=== PATIENT | female | born 1940 | race Caucasian/White ===

== ENCOUNTER 2016-11-06 20:48 | Emergency (ER) | payer MEDICARE, OTHER ==
[2014-10-08 11:13] VITALS: BMI 28.9
[~2016-11-06 20:48] MED LIST: ADVAIR 250/501 DISK INH; ASPIRIN325 MG PO; AVAPRO150 MG PO; CARDIZEM CD180 MG PO; CILOXAN5 ML EACH EYE; GLUCOPHAGE500 MG PO; LACRI-LUBE; LEVAQUIN500 MG PO; PREDNISONE20 MG PO; VALTREX1000 MG PO; ZYLOPRIM300 MG PO
== END 2016-11-06 21:20 | disposition left against medical advice (07) ==
LOC: D.ER 20:48
DX: R10.2 Pelvic and perineal pain (principal)

== ENCOUNTER 2016-11-22 09:13 | Emergency (ER) | payer MEDICARE, OTHER ==
[2014-10-08 11:13] VITALS: BMI 28.9
== END 2016-11-22 11:50 | disposition home or self-care (01) ==
LOC: D.ER 09:13
DX: S01.81XA Laceration without foreign body of other part of head, initial encounter (principal); W19.XXXA Unspecified fall, initial encounter; S16.1XXA Strain of muscle, fascia and tendon at neck level, initial encounter; S80.01XA Contusion of right knee, initial encounter

== ENCOUNTER 2016-12-03 11:51 | Emergency (ER) | payer MEDICARE, OTHER ==
[2014-10-08 11:13] VITALS: BMI 28.9
[2016-12-03 13:26] LABS: ALBUMIN 3.5 g/dL (3.4-5.0); ALKALINE PHOSPHATASE 82 U/L (46-116); ALT (SGPT) 22 U/L (10-68); BILIRUBIN - TOTAL 0.34 mg/dL (0.2-1.3); CALC OSMOLALITY 285 mosm/kg (275-300); CALCIUM 8.7 mg/dL (8.5-10.1); CARBON DIOXIDE 28.5 mmol/L (21.0-32.0); CHLORIDE - SERUM 104 mmol/L (98-107); CREATININE - SERUM 0.6 mg/dL (0.6-1.3); POTASSIUM - SERUM 3.6 mmol/L (3.5-5.1); SODIUM 142 mmol/L (136-145); UREA NITROGEN 18 mg/dL (7-18); eGFR NON AFRICAN AMERICAN > 90 mL/min (90-120)
[2016-12-03 13:27] LABS: BASOPHILS 0.3 % (0-2); EOSINOPHILS 3.8 % (0-7); HEMATOCRIT 45.9 % (36.0-48.0); HEMOGLOBIN 15.3 g/dL (12-16); IMMATURE GRANULOCYTES 0.2 % (0-5); LYMPHOCYTES 19.3 % (15-50); MCH 30.7 pg (26.0-34.0); MCHC 33.3 g/dL (31.0-37.0); MEAN PLATELET VOLUME 9.8 fL (7.4-10.4); MONOCYTES 7.1 % (2-11); NEUTROPHILS 69.3 % (40-80); PLATELET COUNT 299 10x3/uL (130-400); RBC 4.99 10x6/uL (4.00-5.40); RDW 13.7 % (11.5-14.5); WBC 12.3 10x3/uL (4.8-10.8)
[2016-12-03 13:33] LABS: GLUCOSE 123 mg/dL (74-106)
== END 2016-12-03 14:11 | disposition home or self-care (01) ==
LOC: D.ER 11:51
PROVIDERS: Nurse Practitioner Acute Care
DX: R19.7 Diarrhea, unspecified (principal); J45.909 Unspecified asthma, uncomplicated; E83.42 Hypomagnesemia; F17.200 Nicotine dependence, unspecified, uncomplicated

== ENCOUNTER 2016-12-31 20:23 | Emergency (ER) | payer MEDICARE, OTHER ==
[2014-10-08 11:13] VITALS: BMI 28.9
== END 2016-12-31 21:46 | disposition home or self-care (01) ==
LOC: D.ER 20:23
DX: K64.4 Residual hemorrhoidal skin tags (principal); F17.200 Nicotine dependence, unspecified, uncomplicated

== ENCOUNTER 2017-01-13 18:36 | Emergency (ER) | payer MEDICARE, OTHER ==
[2014-10-08 11:13] VITALS: BMI 28.9
[2017-01-13 21:34] LABS: BASOPHILS 0.4 % (0-2); EOSINOPHILS 4.4 % (0-7); HEMATOCRIT 44.5 % (36.0-48.0); HEMOGLOBIN 14.7 g/dL (12-16); IMMATURE GRANULOCYTES 0.3 % (0-5); LYMPHOCYTES 26.3 % (15-50); MCH 30.7 pg (26.0-34.0); MCV 92.9 fL (80.0-100.0); MEAN PLATELET VOLUME 9.5 fL (7.4-10.4); MONOCYTES 7.2 % (2-11); NEUTROPHILS 61.4 % (40-80); PLATELET COUNT 285 10x3/uL (130-400); RBC 4.79 10x6/uL (4.00-5.40); RDW 13.7 % (11.5-14.5); WBC 11.9 10x3/uL (4.8-10.8)
[2017-01-13 21:35] LABS: INR 0.98 (0.85-1.17); PROTIME 12.8 SECONDS (11.6-15.0)
[2017-01-13 21:51] LABS: ALBUMIN 3.3 g/dL (3.4-5.0); ANION GAP 13.4 mmol/L (8-16); BILIRUBIN - TOTAL 0.25 mg/dL (0.2-1.3); CALCIUM 8.8 mg/dL (8.5-10.1); CARBON DIOXIDE 28.2 mmol/L (21.0-32.0); CREATININE - SERUM 0.8 mg/dL (0.6-1.3); MAGNESIUM - SERUM 1.9 mg/dL (1.8-2.4); POTASSIUM - SERUM 3.6 mmol/L (3.5-5.1); PROTEIN - SERUM 6.7 g/dL (6.4-8.2)
== END 2017-01-13 22:02 | disposition home or self-care (01) ==
LOC: D.ER 18:36
PROVIDERS: Nurse Practitioner Family
DX: K64.9 Unspecified hemorrhoids (principal); K62.89 Other specified diseases of anus and rectum; K59.00 Constipation, unspecified; K62.5 Hemorrhage of anus and rectum; J45.909 Unspecified asthma, uncomplicated

== ENCOUNTER 2017-01-28 10:25 | Emergency (ER) | payer MEDICARE, OTHER ==
[2014-10-08 11:13] VITALS: BMI 28.9
== END 2017-01-28 11:50 | disposition home or self-care (01) ==
LOC: D.ER 10:25
DX: Y04.2XXA Assault by strike against or bumped into by another person, initial encounter (principal); Y93.89 Activity, other specified; Y92.019 Unspecified place in single-family (private) house as the place of occurrence of the external cause; F41.9 Anxiety disorder, unspecified; J45.909 Unspecified asthma, uncomplicated; E11.9 Type 2 diabetes mellitus without complications; Z79.4 Long term (current) use of insulin

== ENCOUNTER 2017-03-29 15:28 | Inpatient (IN) | payer MEDICARE, OTHER ==
[~2017-03-29] VITALS: Ht 167.6 cm; Wt 97.7 kg
[2017-03-29 16:28] LABS: BASOPHILS 0.4 % (0-2); EOSINOPHILS 3.5 % (0-7); HEMATOCRIT 45.1 % (36.0-48.0); HEMOGLOBIN 14.9 g/dL (12-16); IMMATURE GRANULOCYTES 0.3 % (0-5); LYMPHOCYTES 22.9 % (15-50); MEAN PLATELET VOLUME 9.6 fL (7.4-10.4); MONOCYTES 6.4 % (2-11); NEUTROPHILS 66.5 % (40-80); PLATELET COUNT 275 10x3/uL (130-400); RDW 13.5 % (11.5-14.5); WBC 11.8 10x3/uL (4.8-10.8)
[2017-03-29 16:42] LABS: APPEARANCE CLEAR (CLEAR); BILIRUBIN NEGATIVE (NEGATIVE); COLOR YELLOW (YELLOW); GLUCOSE NEGATIVE (NEGATIVE); KETONE NEGATIVE (NEGATIVE); NITRITE NEGATIVE (NEGATIVE); PROTEIN NEGATIVE (NEGATIVE); SPECIFIC GRAVITY 1.015 (1.005-1.020); UROBILINOGEN NORMAL (NORMAL)
[2017-03-29 17:05] LABS: UDS - AMPHET NEGATIVE QUAL (NEGATIVE); UDS - BARB NEGATIVE QUAL (NEGATIVE); UDS - BENZO NEGATIVE QUAL (NEGATIVE); UDS - COCAINE NEGATIVE QUAL (NEGATIVE); UDS - OPIATE NEGATIVE QUAL (NEGATIVE); UDS - PCP NEGATIVE QUAL (NEGATIVE); UDS - THC NEGATIVE QUAL (NEGATIVE)
[2017-03-29 17:07] LABS: ALBUMIN 3.2 g/dL (3.4-5.0); ANION GAP 12.6 mmol/L (8-16); BILIRUBIN - TOTAL 0.19 mg/dL (0.2-1.3); CALCIUM 9.1 mg/dL (8.5-10.1); CARBON DIOXIDE 29.2 mmol/L (21.0-32.0); CREATININE - SERUM 0.8 mg/dL (0.6-1.3); PROTEIN - SERUM 6.6 g/dL (6.4-8.2)
[2017-03-29 17:22] LABS: POTASSIUM - SERUM 3.8 mmol/L (3.5-5.1)
[2017-03-29 22:40] VITALS: BP 154/84; BMI 34.7
--- NOTE | 2017-03-30 05:16 | NUR ---
NEW ADMIT TO DOCTOR LAINEZ FROM [facility] EMERGENCY DEPARTMENT FOR ALTERED MENTAL STATUS. PATIENT LIVES WITH AND BECAME COMBATIVE WITH THIS AM. POLICE AND APS CALLED. APS ATTEMPTED PLACEMENT BUT WAS UNSUCCESSFUL. TAKEN TO [facility] ED FOR EVAL. PATIENT TRANSPORTED TO [facility] VIA WHEELCHAIR WITH ED STAFF. CONSENT TO TREAT RECEIVED FROM . CALM AND COOPERATIVE UPON ARRIVAL TO [facility]. ADMIT ASSESSMENT AND HISTORY COMPLETED. STATES SHE IS A DNR. PATIENT IS CALM AND COOPERATIVE AT THIS TIME. ORIENTED TO UNIT. FALL SAFETY EDUCATION GIVEN. CONTINUE TO MONITOR.
[2017-03-30 06:01] LABS: HEMOGLOBIN A1C 7.3 % (4.8-6.0)
[2017-03-30 06:13] LABS: CHOL - HDL RATIO 4.6 ratio (2.3-4.1); LDL-HDL RATIO 2.9 ratio (1.5-3.5); THYROID STIMULATING HORMONE 0.96 uIU/mL (0.36-3.74)
[2017-03-30 09:37] VITALS: BP 188/92
--- NOTE | 2017-03-30 10:00 | NUR ---
ORIENTED TO SELF ONLY. CALM AND COOPERATIVE WITH STAFF AND ASSESSMENT. COMPLIANT WITH TAKING PRESCRIBED MEDICATIONS. CONTINUE PLAN OF CARE.
[2017-03-30 10:43] VITALS: BMI 34.7
[2017-03-30 13:35] VITALS: Ht 167.6 cm; Wt 97.7 kg
--- NOTE | 2017-03-30 19:30 | NUR ---
RECEIVED IN HALLWAY. STANDING AT NURSES STATION. CALM AND COOPERATIVE [facility] CARE AND ASSESSMENT. NO SIGNS OF AGGRESSION. ENCOURAGE TO EXPRESS NEEDS. RESTING IN BED WITH EYES CLOSED AT THIS TIME. CONTINUE PLAN OF CARE.
[2017-03-30 20:17] VITALS: BP 135/54
[2017-03-31 05:15] LABS: FOLATE (FOLIC ACID) - SERUM >20.0 ng/mL (>3.0)
[2017-03-31 06:14] LABS: RAPID PLASMA REAGIN Non Reactive (Non Reactive)
[2017-03-31 07:32] LABS: VITAMIN D 25 HYDROXY 19.2 ng/mL (30.0-100.0)
--- NOTE | 2017-03-31 09:00 | NUR ---
Pt rec'd in d/r for b'fast, alert, calm, cooperative, no aggression noted. Med compliant with no s/s adverse reaction noted. Cont POC including group and medications.
[2017-03-31 09:04] VITALS: BP 143/67
--- NOTE | 2017-03-31 12:52 | PSY ---
PATIENT NAME:KENYETTA BARRIGA MEDICAL RECORD: [id number] : 42 LOCATION:[facility] Jose1 ADMISSION DATE: 03/29/17 ACCOUNT: [id number] PSYCHIATRIC EVALUATION DATE OF EVALUATION: 03/30/17 IDENTIFYING DATA: The patient is 76 years old and she is admitted to the hospital on a voluntary basis. CHIEF COMPLAINT: Aggression. HISTORY OF PRESENT ILLNESS: The patient has a known history of dementia and lives with her family. She apparently became aggressive with her for reasons that she cannot explain because she does not remember the incident. Family has been unable to manage her. They have been considering shelter placement because of her increasing agitation and confusion. The patient herself says that she has a little bit of memory problems, but does not think it is anything to be concerned about. She denies depressive symptoms and denies that she would seek to harm herself or others. PAST MEDICAL HISTORY: Significant for diabetes, glaucoma, hypertension. PAST PSYCHIATRIC HISTORY: Significant for an established diagnosis of dementia, although I am not sure who made the diagnosis or when or how it was made. The patient clearly is impaired cognitively and it is not new. FAMILY HISTORY: Unknown. SOCIAL HISTORY: The patient is . She has 1 daughter. She has been living with her family, but again increasingly confused, agitated, and now at this time actually openly combative with them. MENTAL STATUS EXAMINATION: The patient is awake, alert and oriented to person and place. Her mood is flat. Her affect is constricted. Thought processes are circumstantial. Memory, concentration and abstraction abilities are at least moderately impaired. She denies any active intent to harm herself or others as well as any overt psychotic symptoms. ALLERGIES: SULFA, MORPHINE, CODEINE, AND HYDROCODONE. CURRENT MEDICATIONS: Include allopurinol, Glucophage, ciprofloxacin, aspirin, Avapro, Cardizem, Levaquin. ASSESSMENT: AXIS I: Senile dementia of the Alzheimer's type with behavioral disturbances. AXIS II: None. AXIS III: Hypertension and diabetes. AXIS IV: Moderate stressors. AXIS V: Global assessment of functioning is 30. PLAN: At this time, the patient is admitted to the hospital secondary to confused and agitated behaviors associated with a dementing illness. She will be comprehensively evaluated and treated with both memory enhancing and mood stabilizing medications. Her long-term prognosis is guarded. TRANSINT:[id number] Voice Confirmation ID: [id number] DOCUMENT ID: [id number] MIGUEL LAINEZ MD at 1252 CC: [id number] DICTATION DATE: 03/30/17 1317 MEMBER OF PARLIAMENT: 03/30/17 1337 ADM IN [facility] [address] [place] [id number]
[2017-03-31 19:36] VITALS: BP 153/59
--- NOTE | 2017-03-31 22:46 | NUR ---
RECEIVED IN PATIENT ROOM. RESTING IN BED WITH EYES OPEN. CALM AND COOPERATIVE WITH CARE AND ASSESSMENT. NO SIGNS OF AGGRESSION. ENCOURAGE TO EXPRESS NEEDS. RESTING IN BED WITH EYES CLOSED AT THIS TIME. CONTINUE PLAN OF CARE.
--- NOTE | 2017-04-01 09:56 | PN ---
PATIENT:KENYTETA BARRIGA MEDICAL RECORD: [id number] LOCATION:NICK [facility]112 ADMISSION DATE: 03/29/17 PROGRESS NOTE DATE OF SERVICE: 03/31/2017 SUBJECTIVE: The patient's case was discussed with staff. She has no new complaint. OBJECTIVE: The patient is in good behavioral control with limited insight about her condition. She tolerates her medicines well. She is sleeping and eating well. She has made a number of delusional statements that were reported to me, but when asked about it, she denies them. ASSESSMENT: No change in diagnoses. PLAN: Brief supportive and educational interventions were made. The patient's long-term prognosis is guarded. She will be treated with a low-dose of Namenda for its memory enhancing properties. TRANSINT:[id number] Voice Confirmation ID: [id number] DOCUMENT ID: [id number] MIGUEL LAINEZ MD at 0956 CC: [id number] DICTATION DATE: 03/31/17 1300 FRAMING MANAGER: 03/31/17 1325 ADM IN [place] [id number] [place] [address]
[2017-04-01 10:06] VITALS: BP 136/70
--- NOTE | 2017-04-01 12:16 | NUR ---
B) PATIENT IS AWAKE AND ALERT, SHE IS UPSET THAT SHE IS HERE, SHE DID VOMIT AFTER BREAKFAST, ASKED HER IF HER STOMACH WAS BOTHERING HER, WAS IT THE FOOD, WAS IT THE MEDICINE? PATIENT SAID "NO, I'M UPSET BECAUSE I AM HERE" PATIENT AMBULATES INDEPENDENTLY. I) PROVIDE PRESCRIBED MEDS. R) PATIENT IS COMPLIANT WITH MEDS AND UNIT MILIEU. P) CONTINUE POC.
[2017-04-01 19:22] VITALS: BP 136/71
--- NOTE | 2017-04-02 01:54 | NUR ---
B) patient is alert and oriented to self and being in a hospital, calm and social with staff, I) Administered scheduled medications, monitored for safety, R) Medication compliant, resting quietly now, P) Cointinue plan of care.
--- NOTE | 2017-04-02 08:49 | NUR ---
B) Patient is awake and alert, she is pleasant, but confused, she has asked the same question multiple times to multiple people. She has poor short term memory recall. Patient ambulates well. Patient does c/o nervousness this am. I) Provide ativan 0.5 mg po. R) Patient is compliant with meds and unit milieu. P) Continue poc.
[2017-04-02 09:06] VITALS: BP 122/50
--- NOTE | 2017-04-02 09:17 | PN ---
PATIENT:KENYETTA BARRIGA MEDICAL RECORD: [id number] LOCATION:NICK [facility]112 ADMISSION DATE: 03/29/17 PROGRESS NOTE DATE OF SERVICE: 04/01/2017 SUBJECTIVE: The patient's case was discussed with staff. She has no new complaint. OBJECTIVE: The patient is in good behavioral control with limited insight about her condition. She tolerates her medicines well. Eye contact is poor. Concentration is poor. ASSESSMENT: No change in diagnoses. PLAN: Supportive and educational interventions were made. Long-term prognosis is guarded. I anticipate the patient can be transitioned out of the hospital soon if this level of improvement is maintained. TRANSINT:[id number] Voice Confirmation ID: [id number] DOCUMENT ID: [id number] MIGUEL LAINEZ MD at 0917 CC: [id number] DICTATION DATE: 04/01/17 1001 PACKAGING OPERATOR: 04/01/17 1047 ADM IN [place] [id number] [place] [address]
--- NOTE | 2017-04-02 09:30 | NUR ---
Patient says she does not feel like the meds have helped yet, will continue to monitor.
[2017-04-02 19:57] VITALS: BP 129/54
--- NOTE | 2017-04-02 23:16 | NUR ---
B) Patient is alert and oriented to person place and month, calm and cooperative with care and assessment, I) Administered scheduled medications, monitored for safety and behaviors, R) Medication compliant, pleasant and friendly, social with peers, P) Continue plan of care.
[2017-04-03 08:00] VITALS: BP 138/59
--- NOTE | 2017-04-03 08:15 | NUR ---
PATIENT C/O ANXIETY, SHE SAYS HER STOMACH IS BOTHERING HER, BUT SHE IS NOT SURE IF IT'S NERVES OR ACID REFLUX. PROVIDED ATIVAN 0.5 MG PO, WILL MONITOR.
--- NOTE | 2017-04-03 11:29 | PN ---
PATIENT:KENYETTA BARRIGA MEDICAL RECORD: [id number] LOCATION:NICK [facility] ADMISSION DATE: 03/29/17 PROGRESS NOTE DATE OF SERVICE: 04/02/2017 SUBJECTIVE: The patient's case was discussed with staff. She has no new complaint. OBJECTIVE: The patient denies intent to harm herself or others and generally tolerates her medicines well. ASSESSMENT: No change in diagnoses. PLAN: Current medicines have been reviewed and will be maintained. Long-term prognosis is guarded. Brief supportive and educational interventions were made. TRANSINT:[id number] Voice Confirmation ID: [id number] DOCUMENT ID: [id number] MIGUEL LAINEZ MD at 1129 CC: [id number] DICTATION DATE: 04/02/1729 HOTEL DINING ROOM CASHIER: 04/02/17 1116 ADM IN [facility] [address] [place] [address]
--- NOTE | 2017-04-03 12:00 | NUR ---
PATIENT IS NOT C/O ANXIETY OR STOMACH UPSET.
--- NOTE | 2017-04-03 12:43 | NUR ---
PATIENT C/O BEING ANXIOUS AND SHE IS C/O STOMACH UPSET AGAIN, DID PROVIDE ATIVAN 0.5 MG PO, WILL MONITOR.
--- NOTE | 2017-04-03 12:58 | NUR ---
B) PATIENT IS AWAKE AND ALERT, SHE AMBULATES INDEPENDENTLY. SHE IS TRYING TO BE POSITIVE. SHE SAYS SHE IS TRYING TO MAKE THE BEST OF THE DAY. SHE HAS NOT SHOWN ANY AGGRESSION TODAY. I) PROVIDE PRESCRIBED MEDS. R) PATIENT IS COMPLIANT WITH MEDS AND UNIT MILIEU. P) CONTINUE POC.
--- NOTE | 2017-04-03 13:06 | NUR ---
PATIENT SAYS "CAN YOU REMIND ME TO TELL DR. THIBODEAUX TO GET SOMETHING FOR STOMACH UPSET, THIS ATIVAN IS NOT HELPING".
[2017-04-03 21:13] VITALS: BP 131/59
--- NOTE | 2017-04-04 04:50 | NUR ---
B) Patient is alert and oriented , calm and pleasant, social with peers, I) Administered scheduled medications, R) Medication compliant, friendly P) Continue plan of care.
[2017-04-04 07:00] VITALS: BP 151/56
--- NOTE | 2017-04-04 10:56 | NUR ---
ATIVAN 0.5 MG GIVEN FOR C/O ANXIETY.
--- NOTE | 2017-04-04 12:00 | NUR ---
ALERT AND ORIENTED BUT VERY FORGETFUL.AMBULATORY.COMPLIANT WITH STAFF AND MEDS.WILL CONTINUE WITH PLAN OF CARE ,MONITOR FOR CHANGES AND SAFETY.
--- NOTE | 2017-04-04 12:01 | PN ---
PATIENT:KENYETTA BARRIGA MEDICAL RECORD: [id number] LOCATION:NICK [facility]112 ADMISSION DATE: 03/29/17 PROGRESS NOTE DATE OF SERVICE: 04/03/2017 SUBJECTIVE: The patient's case was discussed with staff. She has no new complaint. OBJECTIVE: The patient is in good behavioral control with poor insight about her condition. She tolerates her medicines well. ASSESSMENT: No change in diagnoses. PLAN: Brief supportive and educational interventions were made. Long-term prognosis is guarded. I anticipate the patient can be transitioned out of the hospital soon if this level of improvement is maintained. TRANSINT:[id number] Voice Confirmation ID: [id number] DOCUMENT ID: [id number] MIGUEL LAINEZ MD at 1201 CC: [id number] DICTATION DATE: 04/03/17 1137 INORGANIC CHEMICAL TECHNICIAN: 04/03/17 1253 ADM IN [facility] [address] [place] [address]
--- NOTE | 2017-04-04 20:10 | NUR ---
RECEIVED IN HALLWAY. STANDING AT NURSES STATION. CALM AND COOPERATIVE WITH CARE AND ASSESSMENTS. NO SIGNS OF AGGRESSION. ALERT AND ORIENTED. ENCOURAGE TO EXPRESS NEEDS. RESTING IN BED EYES OPEN AT THIS TIME. CONTINUE PLAN OF CARE
[2017-04-04 20:29] VITALS: BP 122/56
[2017-04-05 07:00] VITALS: BP 162/84
--- NOTE | 2017-04-05 08:50 | NUR ---
PT AM MEDS ADMINISTERD WITH NO PROBLEMS. WAITING ON AVAPRO FROM PHARMACY. PT EATING BREAKFAST AT THIS TIME. WCTM.
--- NOTE | 2017-04-05 13:51 | PN ---
PATIENT:KENYETTA BARRIGA MEDICAL RECORD: [id number] LOCATION:NICK [facility]112 ADMISSION DATE: 03/29/17 PROGRESS NOTE DATE OF SERVICE: 04/04/2017 SUBJECTIVE: The patient's case was discussed with staff. She has no new complaint. OBJECTIVE: The patient is in good behavioral control with poor insight about her condition. She tolerates her medicines well. ASSESSMENT: No change in diagnoses. PLAN: Brief supportive and educational interventions were made. I anticipate the patient can be transitioned out of the hospital soon if this level of improvement is maintained. TRANSINT:[id number] Voice Confirmation ID: [id number] DOCUMENT ID: [id number] MIGUEL LAINEZ MD at 1351 CC: [id number] DICTATION DATE: 04/04/17 1206 REAR ADMIRAL: 04/04/17 1225 ADM IN [place] [id number] [place] [address]
--- NOTE | 2017-04-05 19:39 | NUR ---
RECEIVED IN HALLWAY. STANDING AT NURSES STATION. ASKING IF SHE CAN GO LAY DOWN IN BED. CALM AND COOPERATIVE WITH CARE AND ASSESSMENTS. NO SIGNS OF AGGRESSION. REDIRECT AND REORIENT NEEDED. ENCOURAGE TO EXPRESS NEEDS. RESTING IN BED EYES OPEN AT THIS TIME. CONTINUE PLAN OF CARE
[2017-04-05 20:00] VITALS: BP 140/48
[2017-04-06 08:57] VITALS: BP 135/75
--- NOTE | 2017-04-06 11:52 | PN ---
PATIENT:KENYETTA BARRIGA MEDICAL RECORD: [id number] LOCATION:NICK [facility]112 ADMISSION DATE: 03/29/17 PROGRESS NOTE DATE OF SERVICE: 04/05/2017 SUBJECTIVE: The patient's case was discussed with staff. She has no new complaint. OBJECTIVE: The patient denies intent to harm herself or others. She has been disorganized and at times disruptive, but overall is showing improvement. She is tolerating her medications well. ASSESSMENT: No change in diagnoses. PLAN: At this time, the patient's Namenda is going to be increased to 5 mg twice daily. Her long-term prognosis is guarded. She will be monitored for clinical changes associated with issues. TRANSINT:[id number] Voice Confirmation ID: [id number] DOCUMENT ID: [id number] MIGUEL LAINEZ MD at 1152 CC: [id number] DICTATION DATE: 04/05/17 1410 IMPLEMENTATION PROJECT MANAGER: 04/05/17 1521 ADM IN [place] [id number] [place] [address]
--- NOTE | 2017-04-06 14:27 | NUR ---
Nutrition Follow Up: Pt is eating 76% meal avg on a diabetic diet. +BM 03/30/17-no BM x 7 days. Meds and labs reviewed. Rec continue current diet. RD following.
[2017-04-06 19:34] VITALS: BP 122/56
--- NOTE | 2017-04-07 01:34 | NUR ---
RECEIVED IN HALLWAY. STANDING AT NURSES STATION ASKING FOR HER PM MEDICATIONS SO SHE CAN GO TO BED. CALM AND COOPERATIVE WITH CARE AND ASSESSMENT. NO SIGNS OF AGGRESSION. REDIRECT AND REORIENT NEEDED. ENCOURAGE TO EXPRESS NEEDS. RESTING IN BED WITH EYES CLOSED AT THIS TIME. CONTINUE PLAN OF CARE.
--- NOTE | 2017-04-07 08:16 | NUR ---
B) PATIENT IS AWAKE AND ALERT AND SHE IS AMBULATORY, SHE IS ORIETED X3, BUT SHE HAS POOR SHORT TERM MEMORY RECALL, SHE HAS ASKED "WHAT TIME IS BREAKFAST" FOUR TIMES IN THE PAST TEN MINUTES. I) PROVIDE PRESCRIBED MEDS. R) PATIENT IS COMPLIANT WITH MEDS AND UNIT MILIEU. P) CONTINUE POC.
[2017-04-07 09:49] VITALS: BP 145/73
--- NOTE | 2017-04-07 11:36 | NUR ---
Nutrition Follow Up: Pt is eating 71% meal avg on a diabetic diet. No BM since admit. Labs and meds reviewed. Rec continue current diet. RD following.
--- NOTE | 2017-04-07 14:06 | PN ---
PATIENT:KENYETTA BARRIGA MEDICAL RECORD: [id number] LOCATION:NICK [facility]ron112 ADMISSION DATE: 03/29/17 PROGRESS NOTE DATE OF SERVICE: 04/06/2017 SUBJECTIVE: The patient's case was discussed with staff. She has no new complaint. OBJECTIVE: The patient was tested by Dr. Luz Elena Dumont and found to have a zblclhlb-bb-pizvxt level of impairment with a score of 22/30 on the SLUMS. She is very distressed about her situation and even when it is explained to her just simply cannot hold on to the concepts or ideas. She thinks that she is being imprisoned here even though trying to explain that it is difficult for her to grasp. ASSESSMENT: No change in diagnoses. PLAN: The patient is going to be given Zoloft to assist with her underlying depressive symptoms. Her long-term prognosis is guarded. TRANSINT:[id number] Voice Confirmation ID: [id number] DOCUMENT ID: [id number] MIGUEL LAINEZ MD at 1406 CC: [id number] DICTATION DATE: 04/06/17 1436 BLACK TOPPER: 04/06/17 [address] [facility] [address] [place] [address]
[2017-04-07 19:44] VITALS: BP 142/66
--- NOTE | 2017-04-08 01:52 | NUR ---
B) PATIENT IS ALERT AND ORIENTED X 3, CALM AND COOPERATIVE, CONFUSED AT TIMES AND POOR SHORT TERM MEMORY, I) AMINISTERED SCHEDULED MEDICATIONS, MONITORED FOR SAFETY, REDIREDTED NEEDED.\ R) MEDICATION COMPLIANT, PLEASANT AND FRIENDLY, P) CONTINUE PLAN OF CARE.
[2017-04-08 09:52] VITALS: BP 138/64
--- NOTE | 2017-04-08 10:00 | NUR ---
B) PATIENT IS AWAKE AND ALERT, SHE IS CALM AND COOPERATIVE SHE HAS NOT SHOWN ANY AGGRESSION TODAY, SHE IS CONFUSED, SHE HAS POOR SHORT TERM MEMORY RECALL. PATIENT AMBULATES INDEPENDENTLY. I) PROVIDE PRESCRIBED MEDS. R) PATIENT IS COMPLIANT WITH MEDS AND UNIT MILIEU. P) COMNTINUE POC.
--- NOTE | 2017-04-08 12:49 | NUR ---
PATIENT'S DAUGHTER CALLED AND STATES THAT SHE SPOKE TO SOMEONE AT [facility] ABOUT GETTING HER MOTHER PLACED THERE AND THE DAUGHTER STATES ELNORA TOLD HER THEY NEEDED MORE PAPERWORK ABOUT PATIENT'S BEHAVIOR FROM THE PAST FIVE DAYS. WILL LET JUSTIN KNOW.
--- NOTE | 2017-04-08 13:55 | NUR ---
RENNY SENT PPW TO [employer] TO ADD TO YESTERDAY'S FAX OF UPDATES. RENNY ATTEMPTED PHONE CALL TO VIRGILIO PATEL, HOWEVER HER PHONE'S VOICEMAIL IS NOT SET UP TO LEAVE MESSAGE.
--- NOTE | 2017-04-08 14:26 | PN ---
PATIENT:KENYETTA BARRIGA MEDICAL RECORD: [id number] LOCATION:ElanaHUY [facility]ron[facility] ADMISSION DATE: 03/29/17 PROGRESS NOTE DATE OF SERVICE: 04/07/2017 SUBJECTIVE: The patient's case was discussed with staff. She has no new complaint. OBJECTIVE: The patient is very impaired cognitively. She is showing a depressed mood, which she relates to not being able to go home. She is also delusional indicating that she has had no contact with her or family for 10 days, which is not true, but she thinks it is. ASSESSMENT: No change in diagnoses. PLAN: Current medicines and therapies have been reviewed and will be maintained. Her long-term prognosis is guarded. TRANSINT:[id number] Voice Confirmation ID: [id number] DOCUMENT ID: [id number] MIGUEL LAINEZ MD at 1426 CC: [id number] DICTATION DATE: 04/07/17 1413 PIPE OUT WORKER: 04/07/17 1448 ADM IN [place] [address] [place] [id number]
[2017-04-08 19:37] VITALS: BP 143/59
--- NOTE | 2017-04-08 22:34 | NUR ---
B) Patient is alert and oriented x 3 , calm and cooperative, social with staff and peers, I) Administered scheduled medications, monitored for safety and for behaviors, R) medication compliant, pleasant and friendly, P) Continue plan of care.
--- NOTE | 2017-04-09 08:36 | NUR ---
B) PATIENT IS AWAKE AND ALERT SHE IS CONFUSED, SHE CAN NOT RECALL FIVE MINUTES TO THE NEXT SHE CONTINUOUSLY ASKS THE SAME QUESTION OVER AND OVER, SHE IS PLEASANT, SHE DID TAKE A SHOWER THIS AM. I) PROVIDE PRESCRIBED MEDS. R) PATIENT IS COMPLIANT WITH MEDS AND UNIT MILIEU. P) CONTINUE POC.
--- NOTE | 2017-04-09 08:48 | NUR ---
SW ATTEMPTED TO CALL PT'S DTR, VIRGILIO, AGAIN. NO WAY TO LEAVE VM BECAUSE IT IS NOT SET UP.
[2017-04-09 09:44] VITALS: BP 138/56
--- NOTE | 2017-04-09 11:31 | PN ---
PATIENT:KENYETTA BARRIGA MEDICAL RECORD: [id number] LOCATION:NICK [facility]ron112 ADMISSION DATE: 03/29/17 PROGRESS NOTE DATE OF SERVICE: 04/08/2017 SUBJECTIVE: The patient's case was discussed with staff. She has no new complaint. OBJECTIVE: The patient denies intent to harm herself or others. She generally tolerates her medicines well. ASSESSMENT: No change in diagnoses. PLAN: Brief supportive and educational interventions were made. Long-term prognosis is guarded. The patient is severely impaired cognitively. She is at or close to her baseline level of cognitive functioning and I think she can reasonably be transitioned to a halfway soon. TRANSINT:[id number] Voice Confirmation ID: [id number] DOCUMENT ID: [id number] MIGUEL LAINEZ MD at 1131 CC: [id number] DICTATION DATE: 04/08/17 1433 UNDERWRITING SERVICE REPRESENTATIVE: 04/08/17 2150 ADM IN [place] [address] [place] [address]
[2017-04-09 19:30] VITALS: BP 126/82
--- NOTE | 2017-04-10 03:36 | NUR ---
B) Patient is alert and oriented x 3, calm and cooperative, I) Administered scheduled medications, redirected as needed, R) Medication compliant, pleasant and friendly, P) Continue plan of care
--- NOTE | 2017-04-10 06:01 | PN ---
PATIENT:KENYETTA BARRIGA MEDICAL RECORD: [id number] LOCATION:NICK [facility]112 ADMISSION DATE: 03/29/17 PROGRESS NOTE DATE OF SERVICE: 04/09/2017 SUBJECTIVE: No new complaint. OBJECTIVE: The patient is fairly pleasant on approach. She remains confused and is not sure why she is here. Staff report that arrangements are being made for possible transfer to [facility] early next week. On exam, mood is euthymic. Affect is reserved. Speech is rather terse. Content of thought is negative for overt psychosis. Sensorium is unchanged. ASSESSMENT: No change in diagnosis. PLAN: 1. Continue current medications. 2. Continue supportive therapy. TRANSINT:[id number] Voice Confirmation ID: [id number] DOCUMENT ID: [id number] TIP HERNANDEZ III, MD at 0601 CC: [id number] DICTATION DATE: 04/09/17 1109 UNDER SEAL OPERATOR: 04/09/17 1211 ADM IN [place] [address] [place] [address]
[2017-04-10 07:00] VITALS: BP 158/63
--- NOTE | 2017-04-10 16:19 | NUR ---
ORIENTED TO PERSON ,PLACE AND TIME BUT DOES NOT KNOW WHY SHE IS HERE.NO AGGRESSION OBSERVED.AMBULATORY IN UNIT.COMPLIANT WITH MEDS.WILL CONTINUE WITH PLAN OF CARE,MONITOR FOR CHANGES AND SAFETY.
[2017-04-10 19:30] VITALS: BP 123/85
--- NOTE | 2017-04-11 01:42 | NUR ---
RECEIVED IN PATIENT ROOM. RESTING IN BED WTIH EYES OPEN. CALM AND COOPERATIVE WITH CARE AND ASSESSMENT. NO SIGNS OF AGGRESSION. ENCOURAGE TO EXPRESS NEEDS. REDIRECT AND REORIENT NEEDED. RESTING IN BED WITH EYES CLOSED AT THIS TIME. CONTINUE PLAN OF CARE.
[2017-04-11 07:00] VITALS: BP 122/60
--- NOTE | 2017-04-11 09:00 | NUR ---
B) AWAKE AND ALERT, BUT VERY CONFUSED. CALM AND COOPERATIVE WITH STAFF. SHE IS IN PLEASANT MOOD TODAY. ASSESSMENT COMPLETED PER FLOW SHEET. I) ADMINISTER PRESCRIBED MEDICATIONS. R) COMPLIANT WITH TAKING MEDICATIONS. P) CONTINUE PLAN OF CARE.
[2017-04-11 19:30] VITALS: BP 121/82
--- NOTE | 2017-04-11 21:01 | NUR ---
RECEIVED IN BEDROOM. RESTING IN BED WITH EYES CLOSED. RESPONDS TO VOICE. CALM AND COOPERATIVE WITH CARE AND ASSESSMENTS. NO SIGNS OF AGGRESSION. ENCOURAGE TO EXPRESS NEEDS. RESTING IN BED EYES CLOSED AT THIS TIME. CONTINUE PLAN OF CARE
[2017-04-12 07:00] VITALS: BP 147/70
--- NOTE | 2017-04-12 09:00 | NUR ---
PATIENT IS VERY CONFUSED, PLEASANT MOOD, BUT AT TIMES GETS ARGUMETATIVE WITH STAFF IF YOU DISAGREE WITH HER. ADMINISTERED PRESCRIBED MEDICATIONS. COMPLIANT WITH TAKING MEDICATIONS. REDIRECT AND ORIENTED NEEDED. MONITOR FOR SAFETY AND CONTINUE PLAN OF CARE./
[2017-04-12] MEDS ORDERED: CRESTOR5 MG PO (14:28)
[2017-04-12] MEDS ORDERED: NAMENDA5 MG PO (14:28)
[2017-04-12] MEDS ORDERED: ZOLOFT50 MG PO (14:29)
[2017-04-12] MEDS ORDERED: MIRALAX17 GM PO (14:29)
[2017-04-12] MEDS ORDERED: VITAMIN D5000 UNIT PO (14:29)
[2017-04-12] MEDS ORDERED: VITAMIN B-121000 MCG PO (14:30)
[2017-04-12 19:34] VITALS: BP 136/61
--- NOTE | 2017-04-12 21:11 | NUR ---
RECEIVED IN HALLWAY. WALKING TO HER BEDROOM. CALM AND COOPERATIVE WITH CARE AND ASSESSMENTS. NO SIGNS OF AGGGRESSION. REDIRECT AND REORIENT NEEDED. RESTING IN BED WITH EYES CLOSED AT THIS TIME. CONTINUE PLAN OF CARE
--- NOTE | 2017-04-12 23:55 | NUR ---
YELLING OUT. ATTEMPTS TO MANIPULATE STAFF. REDIRECT AND REORIENT NEEDED.
[2017-04-13 07:00] VITALS: BP 155/59
--- NOTE | 2017-04-13 08:15 | NUR ---
CALM AND COOPERATIVE WITH CARE AND STAFF. ASSESSMENT COMPLETED PER FLOW SHEET. MEDICATIONS GIVEN ORDERED. FALL PRECAUTIONS MAINTAINED. WILL CONTINUE TO MONITOR. PATIENT IS SET TO DISCHARGE TODAY TO [facility] ALL DISCHARGE PAPERWORK REVIEWED AND FAXED TO [facility]. ALL BELONGINGS BAGGED AND ACCOUNTED FOR.
--- NOTE | 2017-04-13 11:05 | NUR ---
Nutrition Follow Up: Pt is eating 86% meal avg on a diabetic cardiac diet. +BM 04/11/17. Meds and labs reviewed. Rec continue current diet. RD following.
--- NOTE | 2017-04-13 13:50 | PN ---
PATIENT:KENYETTA BARRIGA MEDICAL RECORD: [id number] LOCATION:NICK [facility] ADMISSION DATE: 03/29/17 PROGRESS NOTE DATE OF SERVICE: 04/12/2017 SUBJECTIVE: The patient's case was discussed with staff. She has no new complaint. OBJECTIVE: The patient is in good behavioral control. She is eating and sleeping reasonably well and the snf has approved her for placement. She denies any intent to harm herself or others. ASSESSMENT: No change in diagnoses. PLAN: The patient will be transitioned out of the hospital tomorrow morning. Her long-term prognosis is guarded. TRANSINT:[id number] Voice Confirmation ID: [id number] DOCUMENT ID: [id number] MIGUEL LAINEZ MD at 1350 CC: [id number] DICTATION DATE: 04/12/17 1434 FABRIC PATTERN GRADER: 04/12/17 1515 ADM IN [place] [address] [place] [address]
--- NOTE | 2017-04-14 12:46 | PN ---
PATIENT:KENYETTA BARRIGA MEDICAL RECORD: [id number] LOCATION:[id number] ADMISSION DATE: 03/29/17 PROGRESS NOTE DATE OF SERVICE: 04/13/2017 SUBJECTIVE: The patient's case was discussed with staff. She has no new complaint. OBJECTIVE: The patient denies intent to harm herself or others. She is tolerating her medicines well. She has very limited insight about her condition and although she was very upset when her told her last night that she had to go to the half-way, today she is accepting of it and more than that is accepting it without any sort of complaint. ASSESSMENT: No change in diagnoses. PLAN: The patient will be transitioned out of the hospital today. Followup will be with her primary care half-way physician. Current medicines will be maintained. TRANSINT:[id number] Voice Confirmation ID: [id number] DOCUMENT ID: [id number] MIGUEL LAINEZ MD at 1246 CC: [id number] DICTATION DATE: 04/13/17 1402 COMPANY DOCTOR: 04/13/17 1411 DIS IN 04/13/17 [facility] [address] [place] [address]
--- NOTE | 2017-04-16 12:20 | DS ---
PATIENT:KENYETTA BARRIGA :42 MEDICAL RECORD: [id number] DISCHARGE SUMMARY ADMISSION DATE: 03/29/17 DISCHARGE DATE: 04/13/17 IDENTIFYING DATA: The patient is 76 years old and she was admitted to the hospital on a voluntary basis. The patient had a known history of dementia and had been living with her family. She apparently became aggressive with her for reasons that she could not explain or remember. The family has been unable to manage her. They have been considering [facility] placement because she has become increasingly agitated and confused. HOSPITAL COURSE: The patient was admitted to the hospital and comprehensively evaluated from both a medical, psychological, and social standpoint. She was treated with both mood stabilizing and memory enhancing medications and did show an improvement in her behavior, but no real change in her underlying level of confusion. She was subsequently placed in a long-term care facility. DISCHARGE DIAGNOSES: AXIS I: Senile dementia of the Alzheimer's type with behavioral disturbances. AXIS II: None. AXIS III: Hypertension, diabetes. AXIS IV: Moderate stressors. AXIS V: Global assessment of functioning is 35. PLAN: At the time of discharge, the patient was not acutely dangerous to herself or others. She was tolerating her medications well. Her long-term prognosis is guarded. TRANSINT:[id number] Voice Confirmation ID: [id number] DOCUMENT ID: [id number] MIGUEL LAINEZ MD at 1220 CC: [id number] DICTATION DATE: 04/15/17 1252 SALES INTERN: 04/15/17 1415 DIS IN 04/13/17 [facility] [id number] [place] [address]
== END 2017-04-13 10:00 | DRG 57 ==
LOC: D.ER 15:28 → D.PSYCH 22:03
PROVIDERS: Family Medicine; ADMIT Psychiatry & Neurology Psychiatry
DX: G30.1 Alzheimer's disease with late onset (principal); F02.81 Dementia in other diseases classified elsewhere, unspecified severity, with behavioral disturbance; I10 Essential (primary) hypertension; E11.9 Type 2 diabetes mellitus without complications; Z79.4 Long term (current) use of insulin; K64.9 Unspecified hemorrhoids; K59.00 Constipation, unspecified; H10.9 Unspecified conjunctivitis; M10.9 Gout, unspecified; Z91.81 History of falling; D32.0 Benign neoplasm of cerebral meninges; E55.9 Vitamin D deficiency, unspecified; E78.5 Hyperlipidemia, unspecified; Z72.0 Tobacco use